=== PATIENT | female | born 1980 | race Caucasian/White ===

== ENCOUNTER 2018-07-12 08:37 | Inpatient (IN) | payer OTHER ==
[~2018-07-12] VITALS: Ht 165.1 cm; Wt 140.3 kg
[~2018-07-12 08:37] MED LIST: BACITRACIN 50,000 UNITS/VIAL ONE; BUPR-93 PO; CeFAZolin 2 GM/DEXTROSE 50 ML IV ONE; DULO60CA44 PO; FURO20 PO; GABA-533 PO; GELATIN SPONGE,ABSORBABLE 50 MM TP ONE; HYDR200T4 PO; IBUP-2071 PO; MELA5TAB3 PO; PERCT10 PO; RINGERS SOLUTION,LACTATED 1,000 ML IV ONE; SODIUM CHLORIDE 0.9% 10 ML ONE; SODIUM CHLORIDE 0.9% 100 ML ONE; THROMBIN, BOVINE 20000 UNITS/VIAL POWDER TP ONE; TOPI100T37 PO; ZOLP10TA7 PO
[2018-07-12] MEDS ORDERED: PROPOFOL 1000 MG/ISO-OSM 100 ML IV ONE (09:50)
[2018-07-12] MEDS ORDERED: LIDOCAINE/PF 2% 5 ML VIAL ONE (09:50)
[2018-07-12] MEDS ORDERED: ACETAMINOPHEN 1000 MG/ISO-OSM 100 ML IV ONE ×2 (10:09→10:15)
[2018-07-12] MEDS ORDERED: MEPERIDINE-PF 25 MG/ML VIAL IVP PRN (11:15)
[2018-07-12] MEDS ORDERED: ONDANSETRON HCL 4 MG/2 ML VIAL IVP PRN ×3 (11:15→22:15)
[2018-07-12] MEDS ORDERED: FentaNYL CITRATE-PF 100 MCG/2 ML VIAL IVP PRN (11:15)
[2018-07-12] MEDS ORDERED: HYDROmorphone 2 MG/ML SYRINGE IVP PRN ×2 (11:15→12:45)
[2018-07-12] MEDS ORDERED: FURO40 PO (11:16)
[2018-07-12] MEDS ORDERED: RINGERS SOLUTION,LACTATED 1,000 ML IV SCH (12:45)
[2018-07-12] MEDS ORDERED: ACETAMINOPHEN 325 MG TABLET PO PRN (12:45)
[2018-07-12] MEDS ORDERED: BENZOCAINE/MENTHOL LOZENGE PO PRN (12:45)
[2018-07-12] MEDS ORDERED: MAG HYDROX/AL HYDROX/SIMETH 30 ML SUSP UDCUP PO PRN (12:45)
[2018-07-12] MEDS ORDERED: HYDROmorphone 2 MG/ML SYRINGE ONE (12:55)
[2018-07-12] MEDS: HYDROmorphone 2 MG/ML SYRINGE IVP PRN ×7 (12:58→20:07)
[2018-07-12 16:00] VITALS: BP 130/66
[2018-07-12] MEDS: CYCLOBENZAPRINE HCL 10 MG TABLET PO SCH ×2 (18:40→20:07)
[2018-07-12] MEDS: ACETAMINOPHEN 1000 MG/ISO-OSM 100 ML IV SCH ×2 (18:41→23:54)
[2018-07-12] MEDS: CeFAZolin 1 GM/DEXTROSE 50 ML IV SCH (18:41)
[2018-07-12 20:00] VITALS: BP 131/78
[2018-07-12] MEDS ORDERED: OXYGEN THERAPY IH SCH ×2 (20:00)
[2018-07-12] MEDS: DOCUSATE SODIUM 100 MG CAPSULE PO SCH (20:06)
[2018-07-12] MEDS ORDERED: MAGNESIUM HYDROXIDE SUSPENSION 30 ML UDCUP PO PRN (22:15)
[2018-07-12] MEDS ORDERED: FUROSEMIDE 40 MG TABLET PO PRN (22:15)
[2018-07-12] MEDS ORDERED: ZOLPIDEM TARTRATE 5 MG TABLET PO PRN (22:15)
[2018-07-12] MEDS ORDERED: BISACODYL 10 MG RECTAL RECTAL SUPPOSITORY PR PRN (22:15)
[2018-07-12 23:58] VITALS: BP 123/72
[2018-07-13] MEDS: HYDROmorphone 2 MG/ML SYRINGE IVP PRN ×4 (01:39→11:12)
[2018-07-13] MEDS: CeFAZolin 1 GM/DEXTROSE 50 ML IV SCH (02:30)
[2018-07-13 04:19] VITALS: BP 133/77
[2018-07-13] MEDS ORDERED: NALOXONE HCL 0.4 MG/ML VIAL IVP ONE (05:32)
[2018-07-13] MEDS ORDERED: MIDAZOLAM HCL 2 MG/2 ML VIAL IVP ONE (05:32)
[2018-07-13] MEDS ORDERED: PHENYLEPHRINE HCL 10 MG/ML VIAL IVP ONE (05:32)
[2018-07-13] MEDS ORDERED: FentaNYL CITRATE-PF 100 MCG/2 ML VIAL IVP ONE (05:32)
[2018-07-13] MEDS ORDERED: GLYCOPYRROLATE 0.2 MG/ML VIAL IM ONE (05:32)
[2018-07-13] MEDS ORDERED: KETAMINE HCL 50 MG/ML 10 ML VIAL IVP ONE (05:32)
[2018-07-13] MEDS ORDERED: ROCURONIUM BROMIDE 10 MG/ML 5 ML VIAL IVP ONE (05:32)
[2018-07-13] MEDS ORDERED: DEXAMETHASONE SOD PHOS 4 MG/ML VIAL IVP ONE (05:32)
[2018-07-13] MEDS ORDERED: ONDANSETRON HCL 4 MG/2 ML VIAL IVP ONE (05:32)
[2018-07-13] MEDS ORDERED: LIDOCAINE/PF 2% 5 ML VIAL IM ONE (05:32)
[2018-07-13] MEDS ORDERED: METOCLOPRAMIDE HCL 5 MG/ML 2 ML VIAL IVP ONE (05:32)
[2018-07-13] MEDS ORDERED: NEOSTIGMINE METHYLSULFATE 1 MG/ML 10 ML VIAL IVP ONE (05:32)
[2018-07-13 06:11] LABS: BASOPHILS % (AUTO) 0.1 % (0.0-2.0); EOSINOPHILS % (AUTO) 0.3 % (1.0-6.0); HEMATOCRIT 35.4 % (36-46); HEMOGLOBIN 11.8 g/dL (12.0-16.0); LYMPHOCYTES # (AUTO) 3.5 K/uL (1.0-4.8); LYMPHOCYTES % (AUTO) 26.9 % (22.0-44.0); MEAN CORPUSCULAR HEMOGLOBIN 29.1 pg (26.0-34.0); MEAN CORPUSCULAR HGB CONC 33.3 G/dL (31.0-37.0); MEAN CORPUSCULAR VOLUME 87 fL (80-100); MONOCYTES # (AUTO) 0.5 K/uL (0.1-1.0); MONOCYTES % (AUTO) 3.9 % (2.0-9.0); NEUTROPHILS # (AUTO) 8.9 K/uL (1.8-7.7); NEUTROPHILS % (AUTO) 68.8 % (40.0-70.0); PLATELET COUNT (AUTO) 283 K/uL (150-450); RED BLOOD CELL COUNT(AUTO) 4.06 MIL/uL (4.00-5.20); RED CELL DISTRIBUTION WIDTH 14.7 % (11.5-14.5)
[2018-07-13 06:15] LABS: CALCIUM, TOTAL 8.1 mg/dL (8.8-10.5); CREATININE 1.05 mg/dL (0.60-1.30); POTASSIUM 3.7 mmol/L (3.5-5.1)
[2018-07-13] MEDS: ACETAMINOPHEN 1000 MG/ISO-OSM 100 ML IV SCH (06:33)
[2018-07-13 07:35] VITALS: BP 143/88
[2018-07-13] MEDS: DOCUSATE SODIUM 100 MG CAPSULE PO SCH (08:13)
[2018-07-13] MEDS: CYCLOBENZAPRINE HCL 10 MG TABLET PO SCH (08:13)
[2018-07-13] MEDS ORDERED: DEXAMETHASONE 2 MG TABLET PO ONE (08:45)
[2018-07-13] MEDS ORDERED: CYCL10 PO (08:50)
[2018-07-13] MEDS ORDERED: OMEP20 PO (08:52)
[2018-07-13] MEDS ORDERED: OXYC-38 PO (08:53)
[2018-07-13] MEDS ORDERED: TOPIRAMATE 100 MG TABLET PO SCH ×2 (09:00)
[2018-07-13] MEDS ORDERED: PANTOPRAZOLE SODIUM 40 MG DR TABLET PO SCH (09:00)
[2018-07-13] MEDS ORDERED: BISACODYL 5 MG EC TABLET PO SCH (09:00)
[2018-07-13] MEDS ORDERED: DOCUSATE SODIUM 100 MG CAPSULE PO SCH (09:00)
[2018-07-13 11:39] VITALS: BP 154/87
== END 2018-07-13 12:45 | disposition home or self-care (01) | DRG 472 ==
LOC: 4E 08:37 → 6N 14:00
PROVIDERS: ADMIT Neurological Surgery; ATTEND Neurological Surgery
PROC: 0RG1070 Fusion of Cervical Vertebral Joint with Autologous Tissue Substitute, Anterior Approach, Anterior Column, Open Approach (ICD-10-PCS; 2018-07-12)
PROC: BR111ZZ Fluoroscopy of Cervical Disc(s) using Low Osmolar Contrast (ICD-10-PCS; 2018-07-12)
PROC: 0RB30ZZ Excision of Cervical Vertebral Disc, Open Approach (ICD-10-PCS; principal; 2018-07-12 10:00)
DX: M50.122 Cervical disc disorder at C5-C6 level with radiculopathy (principal); Z68.43 Body mass index [BMI] 50.0-59.9, adult; E66.01 Morbid (severe) obesity due to excess calories; F31.9 Bipolar disorder, unspecified; G47.00 Insomnia, unspecified; G89.29 Other chronic pain; V89.2XXA Person injured in unspecified motor-vehicle accident, traffic, initial encounter; Y92.410 Unspecified street and highway as the place of occurrence of the external cause; Z88.8 Allergy status to other drugs, medicaments and biological substances; Z79.899 Other long term (current) drug therapy
CPT/HCPCS: 72040; 86850; 86900; 86901; 97161; 97165; 97530; 97535; C1713; G0238; G0378; J0131; J0690; J1100; J1170; J2250; J2310; J2370; J2405; J2704; J2765; J3010; J3490; J7050; J7120; J8540